=== PATIENT | male | born 1945 | race Caucasian/White ===

== ENCOUNTER 2019-10-02 08:50 | Emergency (ER) | payer MEDICARE, SELFPAY ==
[2019-10-02 08:45] VITALS: BP 148/80; PULSE 82; RESP 20; O2SAT 94; BMI 27.2
--- NOTE | 2019-10-02 08:45 | ED_ITS ---
Entered by Jocy Plata, acting as scribe for Deshaun Rosario MD HPI - General Adult General: Chief complaint: Head Injury Stated complaint: FALL History of Present Illness: HPI narrative: 74 yo male presents with fall. Pt states that he was taking a shower and he fell. When asked if he hurt anywhere, pt shook his head no. 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 MD complaint: fall Onset (ago): minute(s) ([employer]) Location: head and face Radiation: non-radiation Severity: moderate Pain Consistency: constant Review of Systems General: Reports: ROS unobtainable due to mental status Skin/Breast: Reports: other (laceration) [facility] PFSH: Medical History (Updated 10/02/19 @ 09:55 by Deshaun Rosario MD) Atrial fibrillation Atrial flutter Hypomagnesemia Surgical History (Updated 10/02/19 @ 08:52 by Jocy Plata) H/O shoulder surgery History of bladder suspension procedure History of knee surgery Hx of appendectomy Hx of CABG Family History (Updated 09/26/19 @ 15:58 by Mojgan Henry LPN) Mother , at age 87-cancer No problems noted. Father , at age 90 Heart disease Brother Liver cancer Social History (Updated 09/26/19 @ 15:58 by Mojgan Henry LPN) Smoking and tobacco status: former smoker Alcohol intake: current Alcohol type: wine Marital status: Current occupational status: retired History of recent travel: No Physical Exam Const: COMMON NORMALS: no apparent distress; negative for oriented x3 EXAM LIMITATIONS: altered mental status (pt is chronically altered) HENMT: COMMON NORMALS: normocephalic and head/scalp atraumatic HEAD & SCALP: normocephalic and atraumatic Eye: COMMON NORMALS: PERRL and EOMs intact bilaterally PUPIL: Yes PERRL Neck/C-Spine: COMMON NORMALS: full ROM and supple Chest: COMMONS NORMALS: inspection of chest normal and palpation of chest normal Resp: COMMON NORMALS: normal respiratory effort, no retractions, no use of accessory muscles and clear to auscultation bilaterally AUSCULTATION: clear to auscultation bilaterally Cardio: COMMON NORMALS: regular rate, regular rhythm and no murmurs RATE: regular rate RHYTHM: regular rhythm GI: COMMON NORMALS: normal to inspection, nondistended, normoactive bowel sounds, soft to palpation, non-tender and no masses PALPATION: Yes soft Extremity: COMMON NORMALS: normal to inspection and full ROM Neuro: COMMON NORMALS: moves all extremities and no focal motor deficits; negative for oriented x3 Psych: COMMON NORMALS: mental status grossly normal, thought process normal and cooperative THOUGHT PROCESS: normal thought process Skin: COMMON NORMALS: negative for no wounds WOUNDS: Yes wounds noted (2-3 cm laceration on pts left eye brow) WOUNDS: Yes wounds noted (2-3 cm laceration on pts left eye brow) Procedures Laceration Laceration 1: Site: face Side (If applicable): left Size (cm): 1 Description: linear Depth: simple, single layer Pre-repair: wound explored, irrigated extensively and deep structures intact Skin layer closed with: other (dermabond) Course Vital Signs: Vital signs: Vital Signs Pulse Rate 86 10/02/19 09:36 Respiratory Rate 22 H 10/02/19 09:36 Blood Pressure 127/65 10/02/19 09:36 Pulse Oximetry 96 10/02/19 09:36 MDM - General Adult MDM Narrative: Medical decision making narrative: Patient presents with a head laceration from a fall. He is well-appearing here and CT head is normal. Patient's laceration was repaired with tissue adhesive and he is stable for discharge. He is return if worsening. Imaging Data^: CT Head: Radiologist's impression: Ordering Provider/Ordering MD: Deshaun Rosario MD Date of Service: 10/02/19 Procedure(s): CT head wo con* [id number] Accession Number(s): [id number] Report Number: [id number] PROCEDURE INFORMATION: Exam: CT Head Without Contrast Exam date and time: 10/02/2019 9:16 AM Age: 74 years old Clinical indication: Injury or trauma; Fall; Initial encounter; Additional info: Fall hit above left eye TECHNIQUE: Imaging protocol: Computed tomography of the head without contrast. Total DLP: 1974.13 mGy-cm Radiation optimization: All CT scans at this facility use at least one of these dose optimization techniques: automated exposure control; mA and/or kV adjustment per patient size (includes targeted exams where dose is matched to clinical indication); or iterative reconstruction. COMPARISON: CT head wo con* [id number] 12/19/2018 6:40 PM FINDINGS: Brain: Hypodensity is seen in the periventricular cerebral white matter. This change is nonspecific but is most likely secondary to chronic ischemia within microvascular distributions. Garrido white matter distinction is maintained throughout the brain. No radiographic evidence of intracranial hemorrhage. Ventricles: Ventricles are enlarged on the basis of mild diffuse cerebral volume loss. Bones/joints: Unremarkable. No acute fracture. Sinuses: Visualized sinuses are unremarkable. No fluid levels. Mastoid air cells: Visualized mastoid air cells are well aerated. Soft tissues: Unremarkable. Other findings: No intra or extra-axial masses, lesions or collections. CT/CT head wo con* [id number] IMPRESSION: No radiographic evidence of acute intracranial pathology. Radiation Dose CTDIVOL = (mGy): DLP = 1974.13 (mGy-cm) ct cspine: Radiologist's impression: Ordering Provider/Ordering MD: Deshaun Rosario MD Date of Service: 10/02/19 Procedure(s): CT cervical spin wo con* [id number] Accession Number(s): [id number] Report Number: [id number] PROCEDURE INFORMATION: Exam: CT Cervical Spine Without Contrast Exam date and time: 10/02/2019 9:16 AM Age: 74 years old Clinical indication: Injury or trauma; Fall; Initial encounter; Blunt trauma; Additional info: Fall hit above left eye TECHNIQUE: Imaging protocol: Computed tomography images of the cervical spine without contrast. Total DLP: 877.07 mGy-cm Radiation optimization: All CT scans at this facility use at least one of these dose optimization techniques: automated exposure control; mA and/or kV adjustment per patient size (includes targeted exams where dose is matched to clinical indication); or iterative reconstruction. COMPARISON: CT Cervical Spine wo* [id number] 12/19/2018 6:43 PM FINDINGS: Vertebrae: posterior vertebral line and the spinal laminar line normal odontoid process normal no fracture Straightening and reversal of the normal cervical lordosis. 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 Lungs: Lung apices are normal. CT/CT cervical spin wo con* [id number] IMPRESSION: No fracture. Discharge Plan Discharge Patient Disposition: Home, Self-Care Clinical Impression: Laceration of head Qualifiers: Encounter type: initial encounter Foreign body presence: without foreign body Laterality: left Condition: Stable Discharge Orders: Discharge Order (Routine); Ordered 10/02/19 Ordered By: Deshaun Rosario Referrals: Ifeanyi Moreno DO [Primary Care Provider] - 4-7 days Discharge Diet: Advance as tolerated Discharge Activity: Resume usual activity Patient Instructions: Laceration Coding Level of Care Code ED Safety Inspector for Chg Fwd Exam Comprehensive The documentation recorded by the Boni nick Kialy, accurately reflects the service I personally performed and the decisions made by Marlene brito Korby, MD
--- NOTE | 2019-10-02 08:50 | CTR_ITS ---
PROCEDURE INFORMATION: Exam: CT Head Without Contrast Exam date and time: 10/02/2019 9:16 AM Age: 74 years old Clinical indication: Injury or trauma; Fall; Initial encounter; Additional info: Fall hit above left eye TECHNIQUE: Imaging protocol: Computed tomography of the head without contrast. Total DLP: 1974.13 mGy-cm Radiation optimization: All CT scans at this facility use at least one of these dose optimization techniques: automated exposure control; mA and/or kV adjustment per patient size (includes targeted exams where dose is matched to clinical indication); or iterative reconstruction. COMPARISON: CT head wo con* [id number] 12/19/2018 6:40 PM FINDINGS: Brain: Hypodensity is seen in the periventricular cerebral white matter. This change is nonspecific but is most likely secondary to chronic ischemia within microvascular distributions. Garrido white matter distinction is maintained throughout the brain. No radiographic evidence of intracranial hemorrhage. Ventricles: Ventricles are enlarged on the basis of mild diffuse cerebral volume loss. Bones/joints: Unremarkable. No acute fracture. Sinuses: Visualized sinuses are unremarkable. No fluid levels. Mastoid air cells: Visualized mastoid air cells are well aerated. Soft tissues: Unremarkable. Other findings: No intra or extra-axial masses, lesions or collections. CT/CT head wo con* [id number] IMPRESSION: No radiographic evidence of acute intracranial pathology. Radiation Dose CTDIVOL = (mGy): DLP = 1974.13 (mGy-cm)
--- NOTE | 2019-10-02 08:50 | XRR_ITS ---
PROCEDURE INFORMATION: Exam: XR Chest, 1 View Exam date and time: 10/02/2019 9:09 AM Age: 74 years old Clinical indication: Injury or trauma; Fall; Initial encounter; Blunt trauma (contusions or hematomas) TECHNIQUE: Imaging protocol: XR of the chest Views: 1 view. COMPARISON: CR Chest 1 [place] [id number] 05/16/2019 2:30 PM FINDINGS: Lungs: Mild airspace disease within the left lung base. Infiltrate and/or atelectasis. Pleural space: Unremarkable. No pleural effusion. No pneumothorax. Heart/Mediastinum: Unremarkable. No cardiomegaly. Bones/joints: Prior sternotomy XR/XR chest 1V portable [id number] IMPRESSION: Mild airspace disease within the left lung base. Infiltrate and/or atelectasis.
--- NOTE | 2019-10-02 08:50 | CTR_ITS ---
PROCEDURE INFORMATION: Exam: CT Cervical Spine Without Contrast Exam date and time: 10/02/2019 9:16 AM Age: 74 years old Clinical indication: Injury or trauma; Fall; Initial encounter; Blunt trauma; Additional info: Fall hit above left eye TECHNIQUE: Imaging protocol: Computed tomography images of the cervical spine without contrast. Total DLP: 877.07 mGy-cm Radiation optimization: All CT scans at this facility use at least one of these dose optimization techniques: automated exposure control; mA and/or kV adjustment per patient size (includes targeted exams where dose is matched to clinical indication); or iterative reconstruction. COMPARISON: CT Cervical Spine wo* [id number] 12/19/2018 6:43 PM FINDINGS: Vertebrae: posterior vertebral line and the spinal laminar line normal odontoid process normal no fracture Straightening and reversal of the normal cervical lordosis. 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 Lungs: Lung apices are normal. CT/CT cervical spin wo con* [id number] IMPRESSION: No fracture. Radiation Dose CTDIVOL = (mGy): DLP = 877.07 (mGy-cm)
--- NOTE | 2019-10-02 09:04 | PC.NURSE ---
XR at bedside.
--- NOTE | 2019-10-02 09:13 | PC.NURSE ---
Pt in CT
--- NOTE | 2019-10-02 09:20 | PC.NURSE ---
Pt returned from CT
[2019-10-02 09:28] VITALS: BP 100/73; PULSE 83; RESP 18; O2SAT 96
[2019-10-02 09:36] VITALS: BP 127/65; PULSE 86; RESP 22; O2SAT 96
[2019-10-02 10:20] VITALS: BP 123/69; PULSE 84; RESP 20; O2SAT 96
== END 2019-10-02 10:54 | disposition home or self-care (01) ==
LOC: ER 10:06
PROVIDERS: Emergency Provider Emergency Medicine; Family Provider Internal Medicine; PCP Internal Medicine
DX: S01.112A Laceration without foreign body of left eyelid and periocular area, initial encounter (principal); G12.21 Amyotrophic lateral sclerosis; I48.91 Unspecified atrial fibrillation; Z87.891 Personal history of nicotine dependence; W19.XXXA Unspecified fall, initial encounter; Y93.E1 Activity, personal bathing and showering; Y92.002 Bathroom of unspecified non-institutional (private) residence as the place of occurrence of the external cause
CPT/HCPCS: 12011; 70450; 71045; 72125; 99282; 99283